=== PATIENT | female | born 1955 | race Caucasian/White ===

== ENCOUNTER 2024-10-25 15:30 | Emergency (ER) | payer MEDICARE, SELFPAY ==
[2024-10-25 15:44] VITALS: BP 176/51; PULSE 88; RESP 18; TEMP 36.8; O2SAT 99; BMI 22.6
--- NOTE | 2024-10-25 15:51 | PC.NURSE ---
pt c/o L leg pain that radiates proximal from her knee to her upper thigh. pt reports the pain is 22/10, sharp/dull/aching, and worse with exertion. pt denies injury. pt previously had a clot in her carotid and had it stented. pt is on plavix.
--- NOTE | 2024-10-25 15:56 | CA_ITS ---
FINAL REPORT TECHNIQUE: Ultrasound images of the deep venous system were obtained from the left groin to the calf veins. CLINICAL HISTORY: PAD, Smoker, Left leg pain and edema COMPARISON: None FINDINGS: The deep venous system is normally compressible. Normal flow is identified. IMPRESSION: No evidence of left lower extremity DVT. Reviewed, Interpreted and Dictated by Rosita Marte MD Transcribed by Tessie Aldridge Authenticated and [facility]
--- NOTE | 2024-10-25 15:56 | PC.NURSE ---
I notified Paula that an US for DVT has been ordered.
--- NOTE | 2024-10-25 16:05 | PC.NURSE ---
Ultrasound at bedside
[2024-10-25 16:11] VITALS: BP 150/106; PULSE 92; O2SAT 98
--- NOTE | 2024-10-25 16:23 | XR_ITS ---
PROCEDURE INFORMATION: Exam: XR Left Knee Exam date and time: 10/25/2024 4:39 PM Age: 69 years old Clinical indication: Pain; Thigh; Left; Additional info: Pain, difficulty walking TECHNIQUE: Imaging protocol: Radiologic exam of the left knee. Views: 3 views. COMPARISON: CR XR KNEE LT 3V 10/25/2024 4:39 PM FINDINGS: Bones/joints: No fractures, dislocations, or bone lesions. No significant joint space narrowing or widening. No joint effusion. Menisci are calcified. Soft tissues: No soft tissue gas, radiopaque foreign bodies, or masses. IMPRESSION: 1. No acute findings in the left knee. 2. Chondrocalcinosis in the left knee. Consider pseudogout.
--- NOTE | 2024-10-25 16:23 | XR_ITS ---
PROCEDURE INFORMATION: Exam: XR Left Femur Exam date and time: 10/25/2024 4:39 PM Age: 69 years old Clinical indication: Pain; Hip; Left; Additional info: Pain, difficulty walking TECHNIQUE: Imaging protocol: Radiologic exam of the left femur. Views: 2 views. COMPARISON: CR XR HIP LT 2-3V W/PELVIS 10/25/2024 4:39 PM FINDINGS: Bones/joints: No fractures, dislocations, or bone lesions. Soft tissues: No soft tissue masses or radiopaque foreign bodies. IMPRESSION: No acute findings in the left femur.
--- NOTE | 2024-10-25 16:23 | XR_ITS ---
PROCEDURE INFORMATION: Exam: XR Left Hip Exam date and time: 10/25/2024 4:39 PM Age: 69 years old Clinical indication: Hip pain; Left hip; Additional info: Pain, difficulty walking TECHNIQUE: Imaging protocol: Radiologic exam of the left hip. Views: 2 or 3 views hip with pelvis when performed. COMPARISON: CR XR HIP LT 2-3V W/PELVIS 10/25/2024 4:39 PM FINDINGS: Bones/joints: No fractures, dislocations, or bone lesions. Soft tissues: No soft tissue masses or radiopaque foreign bodies. IMPRESSION: No acute findings in the left hip. If occult fracture is clinically suspected, CT or MRI would be suggested.
[2024-10-25 16:30] VITALS: BP 117/55; PULSE 85; O2SAT 99
[2024-10-25 16:30] LABS: Basophils % 0.3 % (0.1-2.0); Eosinophils # 0.1 K/mm3 (0.0-0.4); Eosinophils % 0.7 % (0.1-12.0); Hematocrit 32.3 % (37.0-47.0); Hemoglobin 10.5 g/dL (12.2-16.2); Lymphocytes # 3.1 K/mm3 (0.7-4.5); Lymphocytes % 23.4 % (10-50); Mean Corpuscular HGB Conc 32.5 g/dL (31.8-35.4); Mean Corpuscular Hemoglobin 29.1 pg (27.0-31.2); Mean Corpuscular Volume 89.5 fl (81-99); Mean Platelet Volume 8.8 fl (7.4-10.4); Monocytes # 1.2 K/mm3 (0.1-1.0); Monocytes % 8.9 % (1.7-9.3); Neutrophils # 8.7 K/mm3 (1.8-7.8); Neutrophils % 64.6 % (37.0-80.0); Platelet Count 373 K/mm3 (142-424); Red Blood Count 3.61 M/mm3 (4.20-5.40); Red Cell Distribution Width 17.3 % (11.5-17.5); White Blood Count 13.4 K/mm3 (4.8-10.8)
--- NOTE | 2024-10-25 16:41 | PC.NURSE ---
rad at bedside
[2024-10-25] MEDS: LIDOCAINE 5% TRANSDERMAL PATCH 1 EACH TP (16:44)
[2024-10-25] MEDS: diazePAM 5MG TABLET 5 MG PO (16:44)
[2024-10-25] MEDS: KETOROLAC 30MG/ML VIAL 15 MG IV (16:44)
[2024-10-25] MEDS: ACETAMINOPHEN 500MG TAB 1000 MG PO (16:44)
[2024-10-25 16:47] LABS: Albumin Level 3.5 g/dl (3.5-5.0); Chloride 106 mmol/L (98-107); Potassium 3.9 mmoL/L (3.5-5.1); Sodium 139 mmol/L (136-145)
[2024-10-25 16:48] LABS: Creatine Kinase 27 U/L (30-135)
[2024-10-25 16:49] LABS: Alanine Aminotransferase 21 U/L (12-78); Anion Gap 7.9 mEq/L (5-15); Aspartate Amino Transferase 20 U/L (14-36); Blood Urea Nitrogen 15 mg/dl (7-17); Carbon Dioxide 29 mmol/L (22.0-30.0); Creatinine Clearance Estimated 42 mL/min (50-200); Estimated Glomerular Filt Rate 71 ml/min (>60); GFR (African American) 86 ML/MIN (>60)
[2024-10-25 16:50] LABS: Albumin/Globulin Ratio 1.5 (1.1-1.8); Alkaline Phosphatase 133 U/L (38-126); Calcium 8.5 mg/dl (8.4-10.2); Globulin 2.3 g/dL (1.3-3.2); Glucose 110 mg/dl (74-100); Total Protein,Serum 5.8 g/dl (6.3-8.2)
[2024-10-25 16:54] LABS: Bilirubin,Total 0.1 mg/dl (0.2-1.3); Erythrocyte Sedimentation Rate 29 mm/hr (0-30)
[2024-10-25 16:55] LABS: Activated Partial Thrombo Time 26.5 seconds (22.5-28.5); INR 0.79 (0.9-1.1); Prothrombin Time 8.9 seconds (9.2-12.1)
[2024-10-25 16:56] LABS: C-Reactive Protein 10.9 mg/L (0-4)
[2024-10-25 17:00] VITALS: BP 123/56; PULSE 78; O2SAT 96
--- NOTE | 2024-10-25 17:23 | ED_ITS ---
Discharge Plan Disposition Patient Disposition: Home, Self-Care Condition: Good Referrals Follow up/Referrals: Smiley Aguilar [Primary Care Provider] - See instructions Royce Oliver DO [Staff Physician] - See instructions Activity Restrictions/Add. Instructions Additional Instructions/Restrictions: You were evaluated in the emergency department today. Please follow-up with orthopedics. Call his office in the morning to schedule an appointment. Return to the emergency department for new or worsening symptoms. Clinical Impressions Clinical Impression: Left leg pain Instructions Patient Instructions: DI for Chronic Pain -- Adult, DI for Acute Pain -- Adult, DI for Hip Pain Print Language Print Language: Tuvaluan Discharge ED Provider: Hellen Durham General Adult HPI General Chief complaint: PAIN Stated complaint: Left leg and hip pain not injury Time Seen by Provider: 10/25/24 15:58 Mode of Arrival: Ambulatory Source of Information: Patient Limitations: No Limitations Description of Symptoms (Recalled from ER Triage Doc. by RN): Pt presents for evaluation of left leg pain x 3 weeks. Pt is having difficulty ambulating. History of Present Illness HPI narrative: This patient is a 69-year-old female presenting to the emergency department for evaluation with concern for left leg pain. Patient states has been seen multiple times, at [facility], by PCP. She states has been told she has sciatica and bursitis. She states that the pain is still there despite taking Harrison that was provided to her. Pain has been going on for 3 weeks. No falls or traumatic injury noted. No numbness, tingling, saddle anesthesia, incontinence, or other retention. No fevers or other concerns Related Data Allergies Allergy/AdvReac Type Severity Reaction Status Date / Time No Known Allergies Allergy Verified 10/25/24 16:05 [facility] Disclaimer: The information contained in this section may have been updated after the patient was seen, as this information can be updated by other users. Social History Smoking Status: Current every day smoker alcohol intake: never current occupational status: retired Travel in the last 8 weeks: None ROS Obtained: Yes All systems reviewed & no additional complaints except as documented Physical Exam General General appearance: alert and in no apparent distress Head Head exam: atraumatic and normocephalic Eye Eye exam: Present normal appearance, PERRL and EOMI ENT ENT exam: Present normal exam, normal oropharynx, mucous membranes moist and normal external ear exam Neck Neck exam: Present normal inspection, full ROM and trachea midline; Absent tenderness Chest Chest inspection: Present normal inspection and symmetric chest wall rise; Absent tenderness Respiratory Respiratory exam: Present normal lung sounds bilaterally; Absent respiratory distress, wheezes, stridor or accessory muscle use Cardiovascular Cardiovascular exam: Present regular rate and normal rhythm Abdominal Exam Abdominal exam: Present soft; Absent distention, tenderness or guarding Extremities Exam Extremities exam: Present full ROM, tenderness and normal capillary refill; Absent edema Expanded Lower Extremity Exam Left: Leg image: 2 1. Tenderness to palpation 2. Scattered small purpura Comment: All compartment soft, neurovascularly intact distally Back Exam Back exam: Present normal inspection and full ROM; Absent tenderness Neurological Exam Neurological exam: Present alert, oriented X3, CN II-XII intact and normal gait; Absent motor sensory deficit Psychiatric Psychiatric exam: Present normal affect and normal mood Skin Skin exam: Present warm and dry Medical Decision Making Medical Records Medical records reviewed: Yes I reviewed the patient's medical records. Screening: Per USPSTF and CDC recommendations, given the prevalence of disease in our region, it is our hospital?s policy to screen for HIV and viral Hepatitis for all patients aged 18 and over and those with ongoing risk factors. Manpreet Inquiry Pt receiving controlled substance: No Vital Signs: 10/25/24 15:44 10/25/24 16:11 10/25/24 16:30 Temperature 98.3 F Temperature Source Oral Pulse Rate 92 H 85 Pulse Rate [Right] 88 Respiratory Rate 18 Blood Pressure 150/106 H 117/55 L Blood Pressure [Right Arm] 176/51 H Blood Pressure Mean [Right Arm] 92 02 Sat by Pulse Oximetry 99 98 99 Oxygen Delivery Method Room Air Room Air Room Air 10/25/24 17:00 10/25/24 17:30 10/25/24 18:11 Temperature 98.3 F Temperature Source Pulse Rate 78 73 73 Pulse Rate [Right] Respiratory Rate 16 Blood Pressure 123/56 L 107/55 L 107/55 L Blood Pressure [Right Arm] Blood Pressure Mean [Right Arm] 02 Sat by Pulse Oximetry 96 95 Oxygen Delivery Method Room Air Room Air Lab Data Lab results reviewed: Yes I reviewed the patient's lab results. Lab Results 10/25/24 16:20: WBC 13.4 H, RBC 3.61 L, Hgb 10.5 L, Hct 32.3 L, MCV 89.5, MCH 29.1, MCHC 32.5, RDW 17.3, Plt Count 373, MPV 8.8, Neut % (Auto) 64.6, Lymph % (Auto) 23.4, [place] % (Auto) 8.9, Eos % (Auto) 0.7, Baso % (Auto) 0.3, Neut # (Auto) 8.7 H, Lymph # (Auto) 3.1, [place] # (Auto) 1.2 H, Eos # (Auto) 0.1, Baso # (Auto) 0.0, ESR 29, Sodium 139, Potassium 3.9, Chloride 106, Carbon Dioxide 29, Anion Gap 7.9, BUN 15, Creatinine 0.80, Estimated Creat Clear 42, Estimated GFR 71, Est GFR ( Amer) 86, Glucose 110 H, Calcium 8.5, Total Bilirubin 0.1 L , AST 20, ALT 21, Alkaline Phosphatase 133 H, Total Creatine Kinase 27 L, C- Reactive Protein 10.9 H, Total Protein 5.8 L, Albumin 3.5, Globulin 2.3, Albumin/Globulin Ratio 1.5 10/25/24 16:29: PT 8.9 L, INR 0.79 L, APTT 26.5 10/25/24 16:20 10/25/24 16:20 Orders (Tests/Meds): ED MEDICATIONS Discontinued Medications Generic Name Dose Route Start Last Admin Trade Name Freq PRN Reason Stop Dose Admin Acetaminophen 1,000 mg 10/25/24 16:35 10/25/24 16:44 Acetaminophen 500mg Tab PO 10/25/24 16:36 1,000 mg ONCE ONE Administration Diazepam 5 mg 10/25/24 16:35 10/25/24 16:44 Diazepam 5mg Tablet PO 10/25/24 16:36 5 mg ONCE ONE Administration Ketorolac Tromethamine 15 mg 10/25/24 16:35 10/25/24 16:44 Ketorolac 30mg/Ml Vial IV 10/25/24 16:36 15 mg ONCE ONE Administration Lidocaine 1 each 10/25/24 16:35 10/25/24 16:44 Lidocaine 5% Transdermal Patch TP 10/25/24 16:36 1 each ONCE ONE Administration ORDERS Category Date Time Status Femur XR left 2 views [XR femur LT 2V] Stat Exams 10/25/24 16:23 Completed Hip XR left minimum 2 views [XR hip LT 2-3V w/pelvis] Exams 10/25/24 16:23 Completed Stat Knee XR left 3 views [XR knee LT 3V] Stat Exams 10/25/24 16:23 Completed CK [Creatine Kinase] Stat Lab 10/25/24 16:20 Completed CRP [C-Reactive Protein] Stat Lab 10/25/24 16:20 Completed Complete Blood Count Auto Diff Stat Lab 10/25/24 16:20 Completed Comprehensive Metabolic Panel Stat Lab 10/25/24 16:20 Completed ESR [Erythrocyte Sedimentation Rate] Stat Lab 10/25/24 16:20 Completed PT INR [Prothrombin Time INR] Stat Lab 10/25/24 16:29 Completed PTT [Activated Partial Thrombo Time] Stat Lab 10/25/24 16:29 Completed CA venous doppler LE LT Stat Y 10/25/24 15:56 Completed Medical Decision Narrative: In summary, this patient is a 69-year-old female presenting to the Emergency Department for evaluation of 3 weeks of atraumatic left upper extremity pain. Differential diagnoses considered include but are not limited to fracture, contusion, strain/sprain, bursitis, arthritis, sciatica. Ruling out the most morbid conditions drove assessment. On exam, the patient is well-appearing. She is lying in bed in no acute distress. She does have some tiny scattered purpura to the medial thigh with mild tenderness palpation of the groin area. No significant redness, warmth, skin color changes otherwise. She is neurovascularly intact distally with soft compartments. Workup included CBC, CMP, coags, x-rays of the left lower extremity, DVT ultrasound of the left lower extremity. Patient was given oral Tylenol, Valium, she was given IV Toradol, and topical Lidoderm patch for symptomatic improvement. I independently interpreted x-rays and DVT ultrasound prior to the radiologist read and noted no acute fracture and no DVT. Please see their read for final interpretation. Labs were obtained that demonstrated mild anemia. Platelet count normal. Coags reassuring without coagulopathy. Chemistry is reassuring with normal CK. CRP is at the upper limits of normal but ESR is normal. On reassessment, patient is resting comfortably. She is ambulatory. Workup overall is very reassuring. At this time, I feel her pain is likely musculoskeletal, whether it sciatica, disc herniation, musculoskeletal strain/sprain. I feel she is appropriate for discharge with follow-up with orthopedics. She was given instructions for close follow-up and strict return precautions. She was discharged after all questions were answered. Critical Care Critical Care Time Critical Care Time: No
[2024-10-25 17:30] VITALS: BP 107/55; PULSE 73; O2SAT 95
[2024-10-25 18:11] VITALS: BP 107/55; PULSE 73; RESP 16; TEMP 36.8
== END 2024-10-25 18:11 | disposition home or self-care (01) ==
PROVIDERS: Emergency Provider Emergency Medicine; PCP Family Medicine
DX: M79.605 Pain in left leg (principal); M25.552 Pain in left hip
CPT/HCPCS: 73502; 73552; 73562; 80053; 82550; 85025; 85610; 85651; 85730; 86140; 93971; 96374; 99283; J1885